=== PATIENT | female | born 1990 | race Caucasian/White ===

== ENCOUNTER 2017-04-07 16:12 | Observation (INO) | payer MEDICAID ==
[~2017-04-07] VITALS: Ht 162.6 cm; Wt 108.0 kg
[2017-04-07 16:57] VITALS: BP 116/68
[2017-04-07] MEDS ORDERED: PREN-546 PO (17:01)
[2017-04-07] MEDS ORDERED: FERR-252 PO (17:02)
[2017-04-07] MEDS ORDERED: FOLI0.8T PO (17:03)
[2017-04-08] MEDS ORDERED: VITA1TAB44 PO (15:01)
== END 2017-04-07 20:30 | disposition home or self-care (01) ==
LOC: MFCC 16:12 → MLD 16:36
PROVIDERS: ADMIT Obstetrics & Gynecology; ATTEND Obstetrics & Gynecology
DX: O26.893 Other specified pregnancy related conditions, third trimester (principal); R10.9 Unspecified abdominal pain; Z3A.38 38 weeks gestation of pregnancy
CPT/HCPCS: 59025; 76805; 81000; G0378; Q0092